=== PATIENT | male | born 1975 | race Caucasian/White ===

== ENCOUNTER 2021-11-18 03:54 | Emergency (ER) | payer SELFPAY ==
[2021-11-18 04:05] VITALS: BP 105/80; PULSE 90; RESP 16; TEMP 37.2; O2SAT 98; BMI 23.8
[2021-11-18] MEDS: Acetaminophen 325 MG Tablet 650 MG PO (04:21)
[2021-11-18] MEDS: Morphine 2 MG/ML Syringe 1 MG IV (04:29)
[2021-11-18] MEDS: HEPARIN/D5w 25,000 UNITS 25,000 UNITS/250 ML IV.SOLN. 10 UNITS CONT INF (04:34)
[2021-11-18 04:37] VITALS: BP 110/50; PULSE 70; RESP 16; TEMP 37.2; O2SAT 98
[2021-11-18 04:44] LABS: Anion Gap 10 (5-15); BUN 12 mg/dL (7-18); Calcium,Total 9.4 mg/dL (8.5-10.1); Chloride 101 mmol/L (98-107); EST Glomerular Filtration Rate 110 mL/min (>60); Est Glom Filt Rate - Afr Amer 133 mL/min (>60); Estimated Creatinine Clearance 94.56 ml/min; Glucose 100 mg/dL (74-106); Sodium Level 141 mmol/L (136-145); Troponin-I HS (w/2H Reflex) 45 pg/mL (3.0-78.0)
[2021-11-18 04:45] LABS: ERROR FUNCTION FLAG NO; ERROR RESULT FLAG NO; Lactic Acid 2.1 mmol/L (0.4-1.9); POSITIVE COUNT NO; POSITIVE DIFFERENTIAL NO; POSITIVE MORPHOLOGY NO; Platelet Count 250 K/mm3 (150-450)
[2021-11-18 04:50] LABS: Reflex Troponin-HS? (from REC) Y
--- NOTE | 2021-11-18 04:52 | RAD_ITS ---
TEST RAD/Chest PA and Lateral TESTING IMPRESSION
[2021-11-18 04:54] VITALS: BP 120/60; PULSE 55; RESP 17; TEMP 36.9; O2SAT 95
--- NOTE | 2021-11-18 04:59 | EDS_ITS ---
HPI History of Present Illness Chief Complaint: Chest Pain Detail of Chief Complaint: chest pain Informant: patient Onset/Context/Timing Onset: Hours (5 hours) Activity at onset: gradual Timing: Continuous Quality: Positive for Aching, Heaviness and Pressure Current Severity: 4/10 Maximum Severity: 6/10 Worsened By: Movement of Arm and Movement of Torso Relieved By: Oxygen Associated Symptoms: Positive for Nausea Narrative Narrative: The patient is a [46M] who sees []. Patient reports [chest pain]. It was [6] out of 10 at worst. Was worsened by [movment of arm]. It was also relie maria d by [oxygen]. Patient [had some] chest pain or change in dyspnea exertion in the past month. Prior Similar Symptoms: Yes CVD Risk Factors: Positive for Hypertension, Family History 1' </=55 and Smoking [facility] Medical History Chest pain Hypertension Allergy/AdvReac Type Severity Reaction Status Date / Time egg Allergy Hives Verified 11/18/21 04:16 Surgical History no surgical history no surgical history Social History Smoking Status: Former smoker ROS ROS ED Constitutional Constitutional ED: Reports fever(s); Denies chills Gastrointestinal Gastrointestinal: Reports abdominal pain; Denies nausea or vomiting EXAM Physical Exam Const Vital Signs: 11/18/21 04:05 11/18/21 04:37 11/18/21 04:54 Temperature 99 F 99 F 98.4 F Temperature Source Oral Oral Temporal Pulse Rate 90 70 55 L Respiratory Rate 16 16 17 Blood Pressure 105/80 110/50 L 120/60 Blood Pressure Mean 88 70 80 Pulse Ox 98 98 95 Oxygen Delivery Method Nasal Cannula Nasal Cannula Oxygen Flow Rate (L/min) 2 2 11/18/21 05:11 Temperature Temperature Source Pulse Rate Respiratory Rate Blood Pressure Blood Pressure Mean Pulse Ox 98 Oxygen Delivery Method Room Air Oxygen Flow Rate (L/min) 2 Positive well nourished and well developed General Appearance ED: well developed HEENT Reports normocephalic atraumatic Eyes PERRL and EOMs intact bilaterally Neck full ROM Chest Wall inspection of chest normal Chest: tenderness Resp Effort and Inspection: pain with movement Cardio Rhythm: abnormal rhythm irregularly irregular Psych mental status grossly normal Heart Score History: Slightly/Non-Suspicious ECG: Nonspecific Repolarization Age: >45 - <65 years Risk Factors: 1 or 2 Risk Factors Score: 3 MDM MDM Lab Data Labs: Laboratory Results - last 24 hr 11/18/21 11/18/21 11/18/21 02:30 02:30 02:30 WBC Not Reportable Corrected WBC 10.0 RBC 5.10 Hgb 15.0 Hct 45.0 MCV 90.0 MCH 30.0 MCHC 35.0 RDW Std Deviation 38.0 RDW Coeff of [place]are[place] 13.0 Plt Count 250 MPV 11.0 Immature Gran % (Auto) 0.000 Neut % (Auto) 60.0 Lymph % (Auto) 20.0 [place] % (Auto) 5.0 Eos % (Auto) 3.0 Baso % (Auto) 2.0 H Absolute Neuts (auto) 5.0 PT 12.0 INR 1.0 APTT 45.0 H Sodium 141 Potassium 5.0 Chloride 101 Carbon Dioxide 30.0 Anion Gap 10 BUN 12 Creatinine 0.80 Estim Creat Clear Calc 94.56 Est GFR (MDRD) Af Amer 133 Est GFR (MDRD) Non-Af 110 BUN/Creatinine Ratio 15.0 Glucose 100 Lactic Acid Calcium 9.4 Troponin I High Sens 45 Urine Color Urine Clarity Urine pH Ur Specific [place] Urine Protein Urine Glucose (UA) Urine Ketones Urine Occult Blood Urine Nitrite Urine Bilirubin Urine Urobilinogen Ur Leukocyte Esterase 11/18/21 11/18/21 11/18/21 02:30 05:00 05:00 WBC Corrected WBC RBC Hgb Hct MCV MCH MCHC RDW Std Deviation RDW Coeff of [place] Plt Count MPV Immature Gran % (Auto) Neut % (Auto) Lymph % (Auto) [place] % (Auto) Eos % (Auto) Baso % (Auto) Absolute Neuts (auto) PT INR APTT Sodium Potassium Chloride Carbon Dioxide Anion Gap BUN Creatinine Estim Creat Clear Calc Est GFR (MDRD) Af Amer Est GFR (MDRD) Non-Af BUN/Creatinine Ratio Glucose Lactic Acid 2.1 H* Calcium Troponin I High Sens 60 Urine Color Yellow Urine Clarity Clear Urine pH 8.0 Ur Specific [place] 1.005 Urine Protein Negative Urine Glucose (UA) NEGATIVE Urine Ketones Negative Urine Occult Blood Negative Urine Nitrite Negative Urine Bilirubin Negative Urine Urobilinogen Normal Ur Leukocyte Esterase Negative Radiography Chest X-Ray - ED: 2 View and Read by ED Physician Diagnostic Testing: Clinical Impression(s) from Imaging Studies Chest X-Ray 11/18/21 04:52 TESTING IMPRESSION Abdomen/Pelvis CT 11/18/21 05:07 TEST Discharge Plan Dx/Rx/DC Orders Clinical Impression: Chest pain due to GERD Disposition Disposition: Acute [facility]
--- NOTE | 2021-11-18 05:07 | CT_ITS ---
TEST CT/Abdomen/Pelvis without Cont TEST
[2021-11-18 05:11] VITALS: O2SAT 98
[2021-11-18 05:15] LABS: Color, Urine Yellow (Yellow); Glucose, Dipstick NEGATIVE (Normal); Ketone-Dipstick Negative (Negative); Urine Bilirubin Dipstick Negative (Negative); Urine Clarity Clear (Clear)
[2021-11-18 05:16] LABS: Leukocyte Esterase-Dipstick Negative /ul (Negative); Nitrite-Dipstick Negative (Negative); Occult Blood-Urine Negative /ul (Negative); Protein-Dipstick Negative (Negative); Specific Gravity, Urine 1.005 (1.002-1.030); Troponin-I HS 60 pg/mL (3.0-78.0); Urine Urobilinogen Normal (Normal)
[2021-11-18 06:50] LABS: Reflex Lactate? Y
== END 2021-11-18 23:59 | disposition home or self-care (01) ==
DX: R07.89 Other chest pain (principal); K21.9 Gastro-esophageal reflux disease without esophagitis; Z87.891 Personal history of nicotine dependence
CPT/HCPCS: 96365; 96375; 99281; 71046; 74176; 80048; 81002; 83605; 84484; 85025; 85610; 85730; 87040; 87804